=== PATIENT | male | born 1965 | race Caucasian/White ===

== ENCOUNTER → 2021-09-29 | Outpatient (CLI) | payer OTHER, MEDICARE | LOC: NM 11:01 → HEART 5 11:30 → NM 11:30 | DX: I20.9 Angina pectoris, unspecified (principal); I10 Essential (primary) hypertension | CPT/HCPCS: 78452; A9502; J2785 ==

== ENCOUNTER → 2021-10-20 | Outpatient (CLI) | payer OTHER ==
[~2021-10-20] MED LIST: ASPIRIN81 MG PO; ATORVASTATIN CA10 MG PO; CLOBETASOL PRO118 ML TOP; HYDROCHLOROTHIA25 MG PO; HYDROCODON-ACE1 EAC2 PO; LISINOPRIL20 MG PO; MELOXICAM15 MG PO; MONTELUKAST SOD10 MG PO; NITROGLYCERIN0.4 MG SL; OMEPRAZOLE20 MG PO; OTEZLA30 MG PO; PROAIR DIGIHAL90 MCG INH; RANOLAZINE ER500 MG PO; ZEBETA 5 MG TAB5 MG PO
[2021-10-20 13:35] LABS: HEMOGLOBIN 14.5 gm/dl (14.0-17.5); RED BLOOD COUNT 4.34 M/UL (4.20-5.50); WHITE BLOOD COUNT 12.3 K/UL (4.5-11.0)
[2021-10-20 13:57] LABS: BUN/CREATININE RATIO 17 (0-10)
== END ==
LOC: RT 12:14
PROVIDERS: Internal Medicine Interventional Cardiology
DX: Z01.818 Encounter for other preprocedural examination (principal); R94.39 Abnormal result of other cardiovascular function study; I20.9 Angina pectoris, unspecified; J44.9 Chronic obstructive pulmonary disease, unspecified; I10 Essential (primary) hypertension; R00.1 Bradycardia, unspecified
CPT/HCPCS: 36415; 80048; 85025; 85610; 85730; 93005

== ENCOUNTER 2021-10-26 07:09 | Outpatient (CLI) | payer OTHER ==
[~2021-10-26] VITALS: Ht 167.6 cm; Wt 77.1 kg
[2021-10-26] MEDS ORDERED: HYDROCODON-ACE1 EAC2 PO (07:44)
[2021-10-26] MEDS ORDERED: LISINOPRIL20 MG PO (07:45)
[2021-10-26] MEDS ORDERED: ATORVASTATIN CA10 MG PO (07:45)
[2021-10-26] MEDS ORDERED: OMEPRAZOLE20 MG PO (07:45)
[2021-10-26] MEDS ORDERED: RANOLAZINE ER500 MG PO (07:45)
[2021-10-26] MEDS ORDERED: HYDROCHLOROTHIA25 MG PO (07:46)
[2021-10-26] MEDS ORDERED: ZEBETA 5 MG TAB5 MG PO (07:46)
[2021-10-26] MEDS ORDERED: ASPIRIN81 MG PO (07:47)
[2021-10-26] MEDS ORDERED: OTEZLA30 MG PO (07:47)
[2021-10-26] MEDS ORDERED: PROAIR DIGIHAL90 MCG INH (07:49)
[2021-10-26] MEDS ORDERED: MELOXICAM15 MG PO (12:44)
[2021-10-26] MEDS ORDERED: CLOBETASOL PRO118 ML TOP (12:47)
[2021-10-26] MEDS ORDERED: MONTELUKAST SOD10 MG PO (12:48)
[2021-10-26] MEDS ORDERED: NITROGLYCERIN0.4 MG SL (12:50)
[2021-10-26 20:07] LABS: HEMOGLOBIN 14.1 gm/dl (14.0-17.5); RED BLOOD COUNT 4.24 M/UL (4.20-5.50); WHITE BLOOD COUNT 10.4 K/UL (4.5-11.0)
[2021-10-26 20:31] LABS: BUN/CREATININE RATIO 11 (0-10)
[2021-10-27 04:11] LABS: HEMOGLOBIN 13.5 gm/dl (14.0-17.5); RED BLOOD COUNT 4.07 M/UL (4.20-5.50); WHITE BLOOD COUNT 10.7 K/UL (4.5-11.0)
[2021-10-27 04:41] LABS: BUN/CREATININE RATIO 9 (0-10)
[2021-10-27] MEDS ORDERED: PLAVIX 75 MG TA75 MG PO (14:39)
[2021-10-27] MEDS ORDERED: ISOSORBIDE DINI30 MG PO (14:40)
[2021-10-27] MEDS ORDERED: ATORVASTATIN CA40 MG PO (14:41)
[2021-10-27] MEDS ORDERED: PROTONIX40 MG PO (14:42)
== END 2021-10-27 15:04 | disposition home or self-care (01) ==
LOC: CATH 07:09 → PROG CARE 07:09 → CATH 08:00 → PROG CARE 10:58 → CATH 10-27 15:04
PROVIDERS: Internal Medicine Interventional Cardiology
DX: I25.118 Atherosclerotic heart disease of native coronary artery with other forms of angina pectoris (principal); I10 Essential (primary) hypertension; J98.4 Other disorders of lung; F17.200 Nicotine dependence, unspecified, uncomplicated; Z88.0 Allergy status to penicillin; Z91.018 Allergy to other foods
CPT/HCPCS: 36415; 80048; 82550; 82553; 84484; 85025; 85347; 99152; 99153; C1725; C1769; C1874; C1887; C1894; C9600; J0153; J1644; J2250; J3010; J3246; Q9967